=== PATIENT | male | born 1940 | race Caucasian/White ===

== ENCOUNTER 2019-01-18 15:35 | Inpatient (IN) | payer MEDICARE ==
[~2019-01-18] VITALS: Ht 177.8 cm; Wt 70.0 kg
[~2019-01-18 15:35] MED LIST: ACET325T14 PO; ASPI-496 PO; ATOR40TA78 PO; BECL8.7H NAS; CARV6.252 PO; DEXL60CA2 PO; FINA5TAB4 PO; LACT1CAP37 PO; LUTE20CA2 PO; MULT-717 PO; SUCCINYLCHOLINE 20 MG/ML, 10ML ONE; SULF1TAB24 PO; TAMS0.4C2 PO
[2019-01-18] MEDS ORDERED: LACTATED RINGERS 1,000 ML IV SCH (16:15)
[2019-01-18] MEDS ORDERED: ACET-1600 PO (16:17)
[2019-01-18] MEDS ORDERED: FENTANYL PF 250 MCG/5ML ONE (17:25)
[2019-01-18] MEDS ORDERED: OXYcodone 5 MG/5 ML ORAL.SOL UDC PO PRN (17:30)
[2019-01-18] MEDS ORDERED: ONDANSETRON 2MG/ML, 2ML IV PRN ×2 (17:30→23:45)
[2019-01-18] MEDS ORDERED: MEPERIDINE/PF 25MG/0.5ML IVPush PRN (17:30)
[2019-01-18] MEDS ORDERED: hydrALAzine 20 MG/ML, 1ML IV PRN (17:30)
[2019-01-18] MEDS ORDERED: ACETAMINOPHEN 325 MG TABLET PO PRN (17:30)
[2019-01-18] MEDS ORDERED: METOPROLOL 1 MG/ML, 5ML IV PRN (17:30)
[2019-01-18] MEDS ORDERED: MIDAZOLAM 1 MG/ML, 2ML IV PRN (17:30)
[2019-01-18] MEDS ORDERED: PROMETHAZINE 25 MG/ML, 1ML IV PRN (17:30)
[2019-01-18] MEDS ORDERED: ALBUTEROL/IPRATROPIUM 2.5MG/0.5MG, 3 ML NPPB PRN (17:30)
[2019-01-18] MEDS ORDERED: GENTAMICIN 80 MG/2 ML ONE (18:09)
[2019-01-18] MEDS ORDERED: OPIUM/BELLADONNA SUPP.RECT 16.2-60 MG ONE ×2 (18:43→22:04)
[2019-01-18] MEDS ORDERED: CEFAZOLIN 1,000 MG ONE (18:44)
[2019-01-18] MEDS ORDERED: ONDANSETRON 2MG/ML, 2ML ONE (18:44)
[2019-01-18] MEDS ORDERED: DEXAMETHASONE 4 MG/ML, 1ML ONE (18:44)
[2019-01-18] MEDS ORDERED: PROPOFOL 10 MG/ML, 20ML ONE (18:44)
[2019-01-18] MEDS ORDERED: ACETAMINOPHEN 650 MG/20.3 ML UDC ONE (19:08)
[2019-01-18] MEDS ORDERED: FENTANYL PF 100 MCG/2ML ONE ×2 (19:08→22:12)
[2019-01-18] MEDS ORDERED: OXYcodone 5 MG/5 ML ORAL.SOL UDC ONE (19:08)
[2019-01-18] MEDS: FENTANYL PF 100 MCG/2ML IV PRN ×4 (19:16→22:31)
[2019-01-18] MEDS ORDERED: OPIUM/BELLADONNA SUPP.RECT 16.2-60 MG PR PRN (22:30)
[2019-01-18] MEDS ORDERED: D5%-0.45NACL+KCL 20MEQ 1,000 ML IV SCH (23:45)
[2019-01-18] MEDS ORDERED: OPIUM/BELLADONNA SUPP.RECT 16.2-30 MG PR PRN (23:45)
[2019-01-19] VITALS (7 sets, daily range): BP systolic 92–123; BP diastolic 47–70
[2019-01-19] MEDS ORDERED: HYDROcodone/APAP 5/325 TABLET PO PRN (01:00)
[2019-01-19] MEDS: AMPICILLIN 1 GM in SODIUM CHLORIDE 0.9% 50 ML IVPB SCH ×2 (01:10→07:55)
[2019-01-19] MEDS: D5%-0.45NACL+KCL 20MEQ 1,000 ML IV SCH ×2 (01:10→18:14)
[2019-01-19] MEDS: ACETAMINOPHEN 325 MG TABLET PO PRN ×4 (01:59→23:16)
[2019-01-19] MEDS: CARVEDILOL 3.125 MG TABLET PO SCH ×2 (05:37→18:00)
[2019-01-19 06:31] LABS: ANION GAP 6 mmol/L (5-15); CALCIUM 8.6 mg/dL (8.5-10.1); CHLORIDE 99 mmol/L (98-107); CREATININE 1.05 mg/dL (0.7-1.3)
[2019-01-19] MEDS: FINASTERIDE 5 MG TABLET PO SCH (07:55)
[2019-01-19] MEDS: FLUTICASONE NASAL SPRAY 16GM NAS SCH ×2 (07:55→20:00)
[2019-01-19] MEDS: AMPICILLIN 500MG CAPSULE PO SCH ×2 (15:36→20:00)
[2019-01-19] MEDS ORDERED: ATORVASTATIN 40 MG TABLET PO SCH (21:00)
[2019-01-20 05:10] VITALS: BP 112/62
[2019-01-20] MEDS: AMPICILLIN 500MG CAPSULE PO SCH ×2 (05:14→11:54)
[2019-01-20] MEDS: CARVEDILOL 3.125 MG TABLET PO SCH (05:14)
[2019-01-20 05:26] LABS: BASOPHILS # (AUTO) 0.01 x10^3/uL (0-0.1); BASOPHILS % (AUTO) 0 % (0-1); EOSINOPHILS % (AUTO) 0 % (1-7); LYMPHOCYTES # (AUTO) 0.84 x10^3/uL (1-3.4); LYMPHOCYTES % (AUTO) 9 % (22-44); MD NO; MEAN CORPUSCULAR HEMOGLOBIN 33.2 pg (27.5-34.5); MEAN CORPUSCULAR HGB CONC 33.9 g/dL (33.2-36.2); MEAN CORPUSCULAR VOLUME 97.9 fL (81-97); MEAN PLATELET VOLUME 7.4 fL (7.4-10.4); MONOCYTES # (AUTO) 0.64 x10^3/uL (0.2-0.8); MONOCYTES % (AUTO) 7 % (2-9); NEUTROPHILS # (AUTO) 7.93 x10^3/uL (1.8-6.8); NEUTROPHILS % (AUTO) 84 % (42-75); PLATELET COUNT 250 x10^3/uL (130-400); RED CELL DISTRIBUTION WIDTH 13.6 % (9.4-14.8)
[2019-01-20 05:30] LABS: ANION GAP 5 mmol/L (5-15); CALCIUM 8.9 mg/dL (8.5-10.1); CHLORIDE 102 mmol/L (98-107)
[2019-01-20 08:18] VITALS: BP 107/70
[2019-01-20] MEDS: FINASTERIDE 5 MG TABLET PO SCH (09:16)
[2019-01-20] MEDS: FLUTICASONE NASAL SPRAY 16GM NAS SCH (09:16)
[2019-01-20 11:49] VITALS: BP 120/64
[2019-01-20] MEDS: ACETAMINOPHEN 325 MG TABLET PO PRN (13:57)
[2019-01-20 14:48] VITALS: BP 104/51
[2019-01-20] MEDS ORDERED: AMPI500C2 PO (15:21)
== END 2019-01-20 15:26 | disposition home or self-care (01) | DRG 713 ==
LOC: OR 15:35 → 4NOR 22:55 → OR 01-19 10:51 → 4NOR 01-19 10:52 → DCLOUNGE 01-20 15:11
PROVIDERS: ADMIT Urology; ATTEND Urology
PROC: 0V508ZZ Destruction of Prostate, Via Natural or Artificial Opening Endoscopic (ICD-10-PCS; 2019-01-18)
PROC: 0VB08ZZ Excision of Prostate, Via Natural or Artificial Opening Endoscopic (ICD-10-PCS; principal; 2019-01-18 17:30)
DX: N40.1 Benign prostatic hyperplasia with lower urinary tract symptoms (principal); N13.8 Other obstructive and reflux uropathy; I10 Essential (primary) hypertension; E78.5 Hyperlipidemia, unspecified; R33.8 Other retention of urine; R31.0 Gross hematuria; Z80.42 Family history of malignant neoplasm of prostate; Z88.8 Allergy status to other drugs, medicaments and biological substances; Z82.49 Family history of ischemic heart disease and other diseases of the circulatory system; Z80.0 Family history of malignant neoplasm of digestive organs; Z87.440 Personal history of urinary (tract) infections; Z90.79 Acquired absence of other genital organ(s)
CPT/HCPCS: 36415; 80048; 85014; 85018; 85025; 88305; G0378; J0290; J0690; J1100; J2405; J2704; J3010; J0330; J1580; J3480; J7120